=== PATIENT | male | born 1985 | race Asian ===

== ENCOUNTER 2018-06-26 12:44 | Outpatient (CLI) | payer OTHER ==
--- NOTE | 2018-06-26 14:34 | ULT ---
BILATERAL RENAL ULTRASOUND: HISTORY: Chronic renal disease. FINDINGS: The right kidney measures 10.4 cm in length, and the left kidney measures 11.3 cm in length. No foca l mass or hydronephrosis is seen on either side. Cortical echogenicity and thickness are normal. Th e urinary bladder is incompletely distended. IMPRESSION: No evidence of high-grade obstruction. POS: [facility]
== END 2018-06-26 12:45 | disposition home or self-care (01) ==
LOC: SCSULT 12:44
DX: N18.2 Chronic kidney disease, stage 2 (mild) (principal)
CPT/HCPCS: 76770